=== PATIENT | female | born 1985 | race Caucasian/White ===

== ENCOUNTER 2016-09-20 11:08 | Emergency (ER) | payer OTHER ==
[~2016-09-20] VITALS: Ht 165.1 cm; Wt 73.1 kg
[~2016-09-20 11:08] MED LIST: BENTYL 10MG10 MG/CAP PO; IMODIUM 2MG CAPS2 MG PO; LEVBID0.375 MG PO; NEXIUM 20MG20 MG PO; PRENATAL VITAMI1 TA5 PO
[2016-09-20 11:12] VITALS: BP 106/58; PULSE 57; TEMP 98.1
[2016-09-20] MEDS ORDERED: BUTRANS10 MCG/HR TD ×2 (11:28→11:35)
[2016-09-20] MEDS ORDERED: BUTRANS5 MCG/HR TD ×2 (11:28→11:35)
== END 2016-09-20 11:44 | disposition home or self-care (01) ==
LOC: COL.ER 11:08
DX: G89.29 Other chronic pain (principal); M54.6 Pain in thoracic spine; Z76.0 Encounter for issue of repeat prescription

== ENCOUNTER 2017-09-18 11:04 | Emergency (ER) | payer OTHER ==
[~2017-09-18] VITALS: Ht 165.1 cm; Wt 56.8 kg
[~2017-09-18 11:04] MED LIST changes: +BUTRANS10 MCG/HR TD; +BUTRANS5 MCG/HR TD
[2017-09-18 11:07] VITALS: BP 150/80; TEMP 98.2
[2017-09-18 11:50] VITALS: PULSE 68
[2017-09-18] MEDS ORDERED: VISTARIL 2525 MG/CAP PO (11:52)
== END 2017-09-18 11:56 | disposition home or self-care (01) ==
LOC: COL.ER 11:04
DX: F11.23 Opioid dependence with withdrawal (principal); R53.81 Other malaise; F17.210 Nicotine dependence, cigarettes, uncomplicated; Z90.710 Acquired absence of both cervix and uterus

== ENCOUNTER 2017-10-16 11:37 | Emergency (ER) | payer OTHER ==
[~2017-10-16] VITALS: Ht 165.1 cm; Wt 63.6 kg
[~2017-10-16 11:37] MED LIST changes: +VISTARIL 2525 MG/CAP PO
[2017-10-16 11:43] VITALS: TEMP 97.9
[2017-10-16 12:29] LABS: BASO % 0.3 % (0.0-2.0); EOS # 0.1 (0.0-0.7); EOS % 0.8 % (0-4.0); GRAN # 6.9 (1.4-6.5); GRAN % 67.6 % (42.2-75.2); HEMATOCRIT 40.1 % (37.0-47.0); HEMOGLOBIN 13.4 g/dl (12.5-16.0); LYMPH # 2.6 (1.2-3.4); LYMPH % 25.4 % (20.0-51.0); MEAN CELL VOLUME 101 fl (80.0-100.0); MEAN CORPUSCULAR HEMOGLOBIN 34 pg (27.0-31.0); MEAN CORPUSCULAR HGB CONC 33 g/dl (33.0-37.0); MEAN PLATELET VOLUME 9.2 fl (7.4-10.4); MONO # 0.6 (0.1-0.6); MONO % 5.5 % (1.7-9.3); PLATELET COUNT 294 K/mm3 (130-400); RED BLOOD COUNT 3.98 M/mm3 (4.10-5.30); REDCELL DISTRIBUTION WIDTH-CV 13.2 % (11.5-14.5)
[2017-10-16 12:40] LABS: ALANINE AMINOTRANSFERASE 38 U/L (9-52); ALBUMIN 3.9 gm/dL (3.5-5.0); ALKALINE PHOSPHATASE 50 U/L (50-136); ANION GAP 9 mmol/L (7-16); AST,SGOT 24 U/L (15-37); BILIRUBIN,TOTAL 0.3 mg/dL (0.0-1.0); BLOOD UREA NITROGEN 12 mg/dL (7-17); CALCIUM 9.3 mg/dL (8.4-10.2); CARBON DIOXIDE 26 mmol/L (22-30); CHLORIDE 106 mmol/L (98-107); CREATININE, serum 0.64 mg/dL (0.52-1.25); GLUCOSE 112 mg/dL (74-106); LIPASE 135 U/L (23-300); POTASSIUM 4.6 mmol/L (3.4-5.0); SODIUM 142 mmol/L (137-145)
[2017-10-16 12:47] LABS: C-REACTIVE PROTEIN < 0.5 mg/dL (0.0-0.9)
[2017-10-16] MEDS ORDERED: CARAFATE 1GM1 G PO (13:46)
[2017-10-16] MEDS ORDERED: PROTONIX 40MG T40 MG PO (13:46)
[2017-10-16] MEDS ORDERED: NORCO 325 MG-51 TAB PO (13:46)
[2017-10-16 13:56] VITALS: BP 119/80; PULSE 70
== END 2017-10-16 13:57 | disposition home or self-care (01) ==
LOC: COL.ER 11:37
PROVIDERS: Emergency Medicine
DX: R10.13 Epigastric pain (principal); F17.210 Nicotine dependence, cigarettes, uncomplicated; Z87.19 Personal history of other diseases of the digestive system; Z90.710 Acquired absence of both cervix and uterus; Z90.49 Acquired absence of other specified parts of digestive tract; Z98.890 Other specified postprocedural states
CPT/HCPCS: C9113; J1885; J2060; J2405; J7030; Q9967

== ENCOUNTER 2017-11-01 21:09 | Emergency (ER) | payer OTHER ==
[~2017-11-01] VITALS: Ht 165.1 cm; Wt 63.6 kg
[~2017-11-01 21:09] MED LIST changes: +CARAFATE 1GM1 G PO; +NORCO 325 MG-51 TAB PO; +PROTONIX 40MG T40 MG PO
[2017-11-01 21:13] VITALS: BP 136/86; TEMP 97
[2017-11-01 21:39] LABS: BASO # 0.1 (0.0-0.2); BASO % 0.5 % (0.0-2.0); EOS # 0.1 (0.0-0.7); GRAN # 6.9 (1.4-6.5); GRAN % 64.6 % (42.2-75.2); HEMATOCRIT 40.1 % (37.0-47.0); HEMOGLOBIN 13.5 g/dl (12.5-16.0); LYMPH # 3.1 (1.2-3.4); MEAN CELL VOLUME 100 fl (80.0-100.0); MEAN CORPUSCULAR HEMOGLOBIN 34 pg (27.0-31.0); MEAN CORPUSCULAR HGB CONC 34 g/dl (33.0-37.0); MEAN PLATELET VOLUME 9.5 fl (7.4-10.4); MONO # 0.5 (0.1-0.6); MONO % 4.5 % (1.7-9.3); PLATELET COUNT 334 K/mm3 (130-400); RED BLOOD COUNT 4.03 M/mm3 (4.10-5.30); REDCELL DISTRIBUTION WIDTH-CV 12.9 % (11.5-14.5)
[2017-11-01 21:41] LABS: ALBUMIN 4.4 gm/dL (3.5-5.0); BILIRUBIN,TOTAL 0.5 mg/dL (0.0-1.0); C-REACTIVE PROTEIN 0.5 mg/dL (0.0-0.9); CALCIUM 9.1 mg/dL (8.4-10.2); CREATININE, serum 0.87 mg/dL (0.52-1.25); POTASSIUM 3.5 mmol/L (3.4-5.0)
[2017-11-02 00:10] VITALS: PULSE 74
== END 2017-11-02 00:10 | disposition home or self-care (01) ==
LOC: COL.ER 21:09
PROVIDERS: Emergency Medicine
DX: K40.90 Unilateral inguinal hernia, without obstruction or gangrene, not specified as recurrent (principal); Z90.710 Acquired absence of both cervix and uterus; Z90.49 Acquired absence of other specified parts of digestive tract; Z98.890 Other specified postprocedural states
CPT/HCPCS: J1170; J2060; J3010; J7030; Q9967

== ENCOUNTER 2017-11-05 21:06 | Emergency (ER) | payer OTHER ==
[~2017-11-05] VITALS: Ht 165.1 cm; Wt 63.6 kg
[2017-11-05 21:12] VITALS: BP 128/85; TEMP 97.1
[2017-11-05 21:55] LABS: BASO % 0.3 % (0.0-2.0); EOS # 0.1 (0.0-0.7); EOS % 1.4 % (0-4.0); GRAN # 5.4 (1.4-6.5); GRAN % 61.1 % (42.2-75.2); HEMATOCRIT 41.3 % (37.0-47.0); HEMOGLOBIN 14.1 g/dl (12.5-16.0); LYMPH # 2.9 (1.2-3.4); LYMPH % 32.4 % (20.0-51.0); MEAN CELL VOLUME 100 fl (80.0-100.0); MEAN CORPUSCULAR HEMOGLOBIN 34 pg (27.0-31.0); MEAN CORPUSCULAR HGB CONC 34 g/dl (33.0-37.0); MEAN PLATELET VOLUME 9.8 fl (7.4-10.4); MONO # 0.4 (0.1-0.6); MONO % 4.6 % (1.7-9.3); PLATELET COUNT 347 K/mm3 (130-400); RED BLOOD COUNT 4.13 M/mm3 (4.10-5.30); REDCELL DISTRIBUTION WIDTH-CV 12.6 % (11.5-14.5)
[2017-11-05 22:06] LABS: CALCIUM 9.7 mg/dL (8.4-10.2); CREATININE, serum 0.75 mg/dL (0.52-1.25); POTASSIUM 3.8 mmol/L (3.4-5.0)
[2017-11-05 23:01] VITALS: PULSE 71
== END 2017-11-05 23:00 | disposition home or self-care (01) ==
LOC: COL.ER 21:06
PROVIDERS: Physician Assistant
DX: K40.90 Unilateral inguinal hernia, without obstruction or gangrene, not specified as recurrent (principal)
CPT/HCPCS: J1170; J1885; J2405; J3010; J7030

== ENCOUNTER 2017-12-18 08:59 | Emergency (ER) | payer OTHER ==
[~2017-12-18] VITALS: Ht 165.1 cm; Wt 65.0 kg
[2017-12-18 09:05] VITALS: BP 115/58; PULSE 76; TEMP 98.1
[2017-12-18] MEDS ORDERED: PROTONIX20 MG PO (09:19)
[2017-12-18] MEDS ORDERED: GRALISE600 MG PO (09:20)
[2017-12-18] MEDS ORDERED: LIORESAL 1010 MG/TAB PO (09:21)
== END 2017-12-18 09:30 | disposition home or self-care (01) ==
LOC: COL.ER 08:59
DX: Z76.0 Encounter for issue of repeat prescription (principal)

== ENCOUNTER 2017-12-26 01:37 | Emergency (ER) | payer OTHER ==
[~2017-12-26] VITALS: Ht 165.1 cm; Wt 65.9 kg
[~2017-12-26 01:37] MED LIST changes: +GRALISE600 MG PO; +LIORESAL 1010 MG/TAB PO; +PROTONIX20 MG PO
[2017-12-26 01:41] VITALS: BP 126/84; PULSE 90; TEMP 98.2
== END 2017-12-26 03:11 | disposition home or self-care (01) ==
LOC: COL.ER 01:37
DX: S09.90XA Unspecified injury of head, initial encounter (principal); F17.210 Nicotine dependence, cigarettes, uncomplicated; W50.0XXA Accidental hit or strike by another person, initial encounter
CPT/HCPCS: J1200; J1885; J2765

== ENCOUNTER → 2017-12-30 | Outpatient (REF) | LOC: COL.LAB 13:45 | DX: Z01.89 Encounter for other specified special examinations (principal) ==

== ENCOUNTER → 2017-12-30 | Emergency (ER) | payer OTHER | LOC: COL.ER 13:35 | DX: Z72.89 Other problems related to lifestyle (principal) ==

== ENCOUNTER 2018-03-06 20:11 | Emergency (ER) | payer OTHER ==
[~2018-03-06] VITALS: Ht 165.1 cm; Wt 63.6 kg
[2018-03-06 20:16] VITALS: TEMP 99.1
[2018-03-06 20:46] LABS: BASO % 0.3 % (0.0-2.0); EOS # 0.2 (0.0-0.7); EOS % 1.7 % (0-4.0); GRAN # 8.1 (1.4-6.5); GRAN % 69.1 % (42.2-75.2); HEMOGLOBIN 12.4 g/dl (12.5-16.0); LYMPH # 2.6 (1.2-3.4); LYMPH % 22.2 % (20.0-51.0); MEAN CELL VOLUME 95 fl (80.0-100.0); MEAN CORPUSCULAR HEMOGLOBIN 32 pg (27.0-31.0); MEAN CORPUSCULAR HGB CONC 34 g/dl (33.0-37.0); MEAN PLATELET VOLUME 9.9 fl (7.4-10.4); MONO # 0.7 (0.1-0.6); MONO % 5.8 % (1.7-9.3); PLATELET COUNT 473 K/mm3 (130-400); RED BLOOD COUNT 3.89 M/mm3 (4.10-5.30); REDCELL DISTRIBUTION WIDTH-CV 13.8 % (11.5-14.5)
[2018-03-06 20:48] LABS: HEMATOCRIT 36.9 % (37.0-47.0)
[2018-03-06 21:18] LABS: COLLECTION METHOD CATHETER
[2018-03-06 21:29] LABS: MUCOUS Present /lpf; PH 6 (5-8); SQUAMOUS EPITHELIAL None Seen /hpf; URINE APPEARANCE Clear; URINE BACTERIA None Seen /hpf; URINE BILIRUBIN Negative (NEGATIVE); URINE BLOOD Negative (NEGATIVE); URINE COLOR Yellow; URINE GLUCOSE Negative (NEGATIVE); URINE KETONE Negative (NEGATIVE); URINE LEUKOCYTE ESTERASE Negative (NEGATIVE); URINE NITRATE Negative (NEGATIVE); URINE PROTEIN(semi-quant) Negative (NEGATIVE); URINE RBC 0-2 /hpf; URINE UROBILINOGEN Negative (NEGATIVE)
[2018-03-06 21:30] LABS: TRICYCLIC ANTIDEPRESS URINE NEGATIVE
[2018-03-06 21:58] LABS: ALANINE AMINOTRANSFERASE 50 U/L (9-52); ALBUMIN 3.3 gm/dL (3.5-5.0); ALKALINE PHOSPHATASE 82 U/L (50-136); ANION GAP 10 mmol/L (7-16); AST,SGOT 15 U/L (15-37); BILIRUBIN,TOTAL 0.3 mg/dL (0.0-1.0); BLOOD UREA NITROGEN 12 mg/dL (7-17); CALCIUM 8.6 mg/dL (8.4-10.2); CARBON DIOXIDE 25 mmol/L (22-30); CHLORIDE 106 mmol/L (98-107); CREATININE, serum 0.53 mg/dL (0.52-1.25); GLUCOSE 105 mg/dL (74-106); POTASSIUM 3.5 mmol/L (3.4-5.0); SODIUM 141 mmol/L (137-145); TOTAL PROTEIN 5.9 gm/dL (6.4-8.2)
[2018-03-06 21:59] LABS: ACETAMINOPHEN < 10 ug/mL (10-30); ALCOHOL(ethanol),MEDICAL < 10 mg/dL; SALICYLATE < 1.0 mg/dL
[2018-03-06 22:32] LABS: ARTERIAL BLD GAS O2 SATURATION 98.5 % (92-100); ARTERIAL BLD GAS TCO2 CT 25.9; ARTERIAL BLOOD GAS BASE EXCESS -0.8 (-2-2); ARTERIAL BLOOD GAS HCO3 24.5 meq/L (22-26); ARTERIAL BLOOD GAS PCO2 43.2 mmHg (35-45); ARTERIAL BLOOD GAS pH 7.37 (7.35-7.45)
[2018-03-06 22:34] LABS: ARTERIAL BLOOD GAS PO2 170.9 mmHg (80-100)
[2018-03-07 00:10] VITALS: BP 116/83; PULSE 62
== END 2018-03-07 01:10 | disposition short-term general hospital (02) ==
LOC: COL.ER 20:11
PROVIDERS: Emergency Medicine
DX: T65.91XA Toxic effect of unspecified substance, accidental (unintentional), initial encounter (principal); G93.40 Encephalopathy, unspecified; G89.29 Other chronic pain; M54.9 Dorsalgia, unspecified
CPT/HCPCS: J7030